=== PATIENT | male | born 1965 | race Caucasian/White ===

== ENCOUNTER 2017-05-27 20:22 | Observation (INO) ==
[2017-05-27] MEDS ORDERED: Aspirin 81 MG TAB.CHEW PO ONE (20:34)
[2017-05-27] MEDS ORDERED: Nitroglycerin 0.4 MG TAB.SUBL SL PRN (20:50)
--- NOTE | 2017-05-27 20:50 | Emergency Department Note ---
Disposition Clinical Impression: Chest pain Qualifiers: Chest pain type: unspecified Qualified Code(s): R07.9 - Chest pain, unspecified Disposition: Admitted As Inpatient Condition: Good Referrals: Yoselyn Bowling CNP [Primary Care Provider] - Forms: ED Satisfaction Letter Chest Pain HPI - General Chief Complaint: ED Chest Pain Stated Complaint: CP Time Seen by Provider: 05/27/17 20:34 Source: patient Mode of arrival: private vehicle Limitations: no limitations Vital Signs Reviewed: Yes Nursing Notes Reviewed: Yes - History of Present Illness HPI Narrative: 52-year-old male history of coronary artery disease with 2 stents placed in 06/10 , hypertension, hyperlipidemia, smoking to the ER with a chief complaint of chest pain. Patient states symptoms began at 8:30 this morning while driving home. Reports it "felt like an elephant sitting on my chest". States that throughout the day pressure improved but he still has a sharp sensation over his left chest. He denies any diaphoresis, dizziness, lightheadedness, nausea or vomiting. States that he has had 3 episodes of chest pain over the last several weeks but none lasted this long. He was not evaluated at that time. States he is on Coumadin for history of DVT. No history of pulmonary embolus. No other complaints. Pt complaint: chest pain Onset (ago): hour(s) Time: 08:30 Duration: constant Onset: during rest Pain Location: left chest Severity: moderate Severity scale (1-10): 8 Quality: heaviness, sharp Pain Radiation: none Improves with: nothing Worsens with: nothing Associated symptoms: Denies: nausea, vomiting, diaphoresis, dyspnea Treatments prior to arrival chest pain: none - Related Data On Oral Contraceptives: No Home Medications Medication Instructions Recorded Confirmed Aspirin [Adult Low Dose Aspirin EC] 81 mg PO DAILY 08/12/15 05/27/17 Clopidogrel [Plavix] 75 mg PO DAILY 08/12/15 05/27/17 Metoprolol [Lopressor] 25 mg PO BID 08/12/15 05/27/17 Simvastatin [Zocor] 40 mg PO DAILY 08/12/15 05/27/17 Furosemide [Lasix] 40 - 80 mg PO DAILY 05/27/17 05/27/17 Allergies Allergy/AdvReac Type Severity Reaction Status Date / Time Cortisone Allergy Swelling Verified 08/21/16 13:21 of Lip/Tongue/Throat methylprednisolone Allergy Swelling Verified 08/21/16 13:21 [From Depo-Medrol] of Lip/Tongue/Throat All systems ED: reviewed and negative except as stated. Constitutional: Denies: fever Cardiovascular: Reports: chest pain Respiratory: Denies: cough, dyspnea Gastrointestinal: Denies: abdominal pain, nausea, vomiting Chest Pain PMH - Past Medical History Medical history: Reports: coronary artery disease, hyperlipidemia, hypertension , myocardial infarction Surgical history: Reports: orthopedic, other Psychiatric history: Reports: no psych history - Social History Smoking Status: Current every day smoker Alcohol use: Reports: occasionally Drug use: Reports: none Physical Exam - General Limitations: no limitations General appearance: alert, in no apparent distress - Head Head exam: atraumatic - Eye Eye exam: Present: normal appearance - ENT ENT exam: normal exam - Neck Neck exam: Present: normal inspection, full ROM - Chest Chest inspection: Present: normal inspection, symmetric chest wall rise - Respiratory Respiratory exam: Present: normal lung sounds bilaterally - Cardiovascular Cardiovascular exam: Present: regular rate, normal rhythm, normal heart sounds - Abdominal Exam Abdominal exam: Present: soft, Non-Tender. Absent: tenderness - Extremities Exam Extremities exam: Present: normal inspection, full ROM - Expanded Upper Extremity Exam Shoulder exam: Present: normal inspection, full ROM Arm exam: Present: normal inspection, full ROM Elbow exam: Present: normal inspection, full ROM Forearm/Wrist exam: Present: normal inspection, full ROM Hand exam: Present: normal inspection, full ROM - Expanded Lower Extremity Exam Hip/Pelvis exam: Present: normal inspection, full ROM Upper leg exam: Present: normal inspection, full ROM Knee exam: Present: normal inspection, full ROM Lower leg exam: Present: normal inspection, full ROM Ankle exam: Present: normal inspection, full ROM Foot/toe exam: Present: normal inspection, full ROM - Skin Skin exam: Present: warm, dry Course Course Narrative: Patient seen and examined. Vital signs reviewed. We will get an EKG, chest x- ray as well as labs including troponin. Patient will be given aspirin and nitroglycerin trial here. - Reevaluation(s) Reevaluation #1: Discussed results of imaging and labs with the patient. Reports his pain is currently 4/10 from an 8. Recommended admission. At first he was hesitant was thinking about repeat 3 hour troponin however the patient is agreeable with being admitted. We will give him a dose of fentanyl for pain and admit. Vital Signs Temperature 97.9 F 05/27/17 20:25 Pulse Rate 78 05/27/17 20:25 Respiratory Rate 20 05/27/17 20:25 Blood Pressure 145/91 05/27/17 20:25 O2 Sat by Pulse Oximetry 96 05/27/17 20:25 Temperature 97.9 F 05/27/17 20:25 Pulse Rate 71 05/27/17 21:46 Respiratory Rate 18 05/27/17 21:46 Blood Pressure 123/74 05/27/17 21:46 O2 Sat by Pulse Oximetry 100 05/27/17 21:46 Oxygen Delivery Oxygen Delivery Room Air Chest Pain - MDM Narrative Medical decision making narrative: 52-year-old male presents to the ER due to chest pain. Started 8:30 this morning at rest. Reports it was pressure first and now more sharp. No associated symptoms. Upon history of coronary artery disease with 2 stents placed. EKG is sinus without ischemic features. Chest x-ray unremarkable. Initial troponin within normal limits. Patient given aspirin and nitroglycerin. His pain somewhat improved. Patient also given a dose of fentanyl. He is admitted to the hospital service for chest pain evaluation. - Lab Data Lab results reviewed: Yes I reviewed the patient's lab results. Result diagrams: 05/27/17 20:45 05/27/17 20:45 Lab Results 05/27/17 05/27/17 05/27/17 Range/Units 20:45 20:45 20:45 WBC 7.0 (4.3-11.1) K/mcL RBC 5.34 (4.19-5.50) M/mcL Hgb 13.5 (12.9-16.9) g/dL Hct 43.6 (37.5-50.1) % MCV 81.6 L (83.0-100.0) fL MCH 25.3 L (28.0-33.3) pg MCHC 31.0 L (31.6-35.5) g/dL RDW 15.0 H (11.5-14.5) % Plt Count 265 (140-400) K/mcL MPV 9.3 L (9.4-12.4) fL Immature Gran % 0.1 (0-4) % Seg Neutrophils % 62.6 % Lymphocytes % 28.2 % Monocytes % 8.1 % Eosinophils % 0.0 % Basophils % 1.0 % Neutrophils # 4.4 (1.6-8.9) K/mcL Lymphocytes # 2.0 (0.6-4.6) K/mcL Monocytes # 0.6 (0.0-1.3) K/mcL Eosinophils # 0.0 (0.0-0.6) K/mcL Basophils # 0.1 (0.0-0.2) K/mcL PT 10.4 (9.4-12.1) Seconds INR 1.0 APTT 27.8 (26.0-36.0) Seconds Sodium (136-145) mEq/L Potassium (3.5-5.1) mEq/L Chloride (98-107) mEq/L Carbon Dioxide (23-29) mEq/L BUN (6-20) mg/dL Creatinine (0.70-1.30) mg/dL Est GFR ( Amer) (> 60) Est GFR (Non-Af Amer) (> 60) BUN/Creatinine Ratio (6-26) Glucose (70-105) mg/dL Calculated Osmolality (280-300) Calcium (8.6-10.3) mg/dL Troponin I (< 0.04) ng/mL B-Natriuretic Peptide 14 (Less than 100) pg/mL 05/27/17 05/27/17 Range/Units 20:45 20:45 WBC (4.3-11.1) K/mcL RBC (4.19-5.50) M/mcL Hgb (12.9-16.9) g/dL Hct (37.5-50.1) % MCV (83.0-100.0) fL MCH (28.0-33.3) pg MCHC (31.6-35.5) g/dL RDW (11.5-14.5) % Plt Count (140-400) K/mcL MPV (9.4-12.4) fL Immature Gran % (0-4) % Seg Neutrophils % % Lymphocytes % % Monocytes % % Eosinophils % % Basophils % % Neutrophils # (1.6-8.9) K/mcL Lymphocytes # (0.6-4.6) K/mcL Monocytes # (0.0-1.3) K/mcL Eosinophils # (0.0-0.6) K/mcL Basophils # (0.0-0.2) K/mcL PT (9.4-12.1) Seconds INR APTT (26.0-36.0) Seconds Sodium 139 (136-145) mEq/L Potassium 3.9 (3.5-5.1) mEq/L Chloride 104 (98-107) mEq/L Carbon Dioxide 27 (23-29) mEq/L BUN 12 (6-20) mg/dL Creatinine 0.71 (0.70-1.30) mg/dL Est GFR ( Amer) > 60 (> 60) Est GFR (Non-Af Amer) > 60 (> 60) BUN/Creatinine Ratio 17 (6-26) Glucose 135 H (70-105) mg/dL Calculated Osmolality 290 (280-300) Calcium 8.8 (8.6-10.3) mg/dL Troponin I < 0.03 (< 0.04) ng/mL B-Natriuretic Peptide (Less than 100) pg/mL - Radiology Data Radiology results reviewed: Yes I reviewed the patient's radiology results. Chest X-Ray 05/27/17 20:34 IMPRESSION: No acute process. D/ / Pavan Gaspar MD / Pavan Gaspar MD Interpreting Provider: Pavan Gaspar MD - EKG Data EKG attestation: Yes I reviewed and interpreted this EKG. EKG results narrative: EKG demonstrates sinus rhythm with a rate of 74 bpm. Left axis deviation. Prolonged NV interval of 208. Other intervals normal. Normal R-wave progression. No gross ST elevations or depressions. No acute ischemic findings. No significant changes from previous EKG dated 07/31/16. Heart Score - Score History: Moderately Suspicious EKG: Normal Age: 45-65 Risk Factors: Equal/Greater than 3 risk factor or history of atherosclerotic disease Troponin: Less than normal limit HEART Score Total: 4 S.B.A.R. - S.B.A.R. Situation: Demographics, MOA Background: Presenting Complaint, Relevant PMH, Meds, & Allergies Assessment: Course and respsone to treatment, Exam Concerns, Patient/Family Expectation, Pertinant Lab Results Recommendation: Barrier(s) to disposition, Recommendation based on pending studies, treatments, or consults Amanda Report Given to: Dr. Tyrell Patel Repor Time: 22:50 Attestation Statement - Attestation Attestation: I, Juan Whalen MD, personally evaluated this patient and discussed their management with the resident physician. I reviewed the resident's note and agree with the documented findings, medical decision making, and plan of care. 52-year-old male presents to the emergency department with a complaint of some localized left upper anterior chest pain which started at 8:30 this morning. He describes the pain as sharp like a knife stabbing in his chest. It was worse with breathing earlier but now feels more like just a constant dull pressure in the area. No radiation of the pain. No shortness of breath or diaphoresis. No nausea or vomiting. No increased cough. No fever. Patient does have a prior history of coronary artery disease and has 2 coronary artery stents. Pain has been constant more than 12 hours today. On examination patient is a well-developed morbidly obese male in no acute distress. He is alert and oriented 3. There is no cyanosis or diaphoresis. There is some tenderness to palpation over the left upper anterior chest wall. Sounds are clear and equal bilaterally. Heart regular rate and rhythm. Abdomen soft and nontender with normal bowel sounds. 1+ pedal edema bilaterally which patient states is chronic for him. Labs reviewed. Troponin negative. Chest x-ray negative. EKG shows a normal sinus rhythm with a rate of 74. No acute ischemic changes with no acute ST elevations or depression. No significant change from previous EKG dated 2016. The hospitalist, Dr. Santillan, was consulted and accepted admission of the patient.
[2017-05-27 20:53] LABS: Basophils # 0.1 K/mcL (0.0-0.2); Hematocrit 43.6 % (37.5-50.1); Hemoglobin 13.5 g/dL (12.9-16.9); Immature Granulocytes % 0.1 % (0-4); Lymphocytes % 28.2 %; Mean Corpuscular Hemoglobin 25.3 pg (28.0-33.3); Mean Corpuscular Volume 81.6 fL (83.0-100.0); Mean Platelet Volume 9.3 fL (9.4-12.4); Monocytes # 0.6 K/mcL (0.0-1.3); Monocytes % 8.1 %; Neutrophils # 4.4 K/mcL (1.6-8.9); Platelet Count 265 K/mcL (140-400); Red Blood Count 5.34 M/mcL (4.19-5.50); Segmented Neutrophils % 62.6 %
[2017-05-27 20:57] LABS: Prothrombin Time 10.4 Seconds (9.4-12.1)
[2017-05-27 20:59] LABS: Activated Partial Thrombo Time 27.8 Seconds (26.0-36.0)
[2017-05-27 21:45] LABS: BUN/Creatinine Ratio 17 (6-26); Blood Urea Nitrogen 12 mg/dL (6-20); Calcium 8.8 mg/dL (8.6-10.3); Carbon Dioxide 27 mEq/L (23-29); Chloride 104 mEq/L (98-107); Glucose 135 mg/dL (70-105); Osmolality,Calculated 290 (280-300); Potassium 3.9 mEq/L (3.5-5.1); Sodium 139 mEq/L (136-145); eGFR For African Americans > 60 (> 60); eGFR For Non-African Americans > 60 (> 60)
[2017-05-27] MEDS ORDERED: *HR* FentaNYL (PF) 100 MCG/2 ML VIAL IVP ONE (22:21)
[2017-05-28] MEDS ORDERED: Naloxone 0.4 MG/ML INJ IVP PRN (00:53)
[2017-05-28 01:18] LABS: Basophils # 0.1 K/mcL (0.0-0.2); Hematocrit 43.7 % (37.5-50.1); Hemoglobin 13.6 g/dL (12.9-16.9); Immature Granulocytes % 0.3 % (0-4); Lymphocytes # 2.3 K/mcL (0.6-4.6); Lymphocytes % 32.5 %; Mean Corpuscular HGB Conc 31.1 g/dL (31.6-35.5); Mean Corpuscular Hemoglobin 25.6 pg (28.0-33.3); Mean Corpuscular Volume 82.3 fL (83.0-100.0); Mean Platelet Volume 9.2 fL (9.4-12.4); Monocytes # 0.6 K/mcL (0.0-1.3); Monocytes % 9.1 %; Platelet Count 264 K/mcL (140-400); Red Blood Count 5.31 M/mcL (4.19-5.50); Red Cell Distribution Width 15.1 % (11.5-14.5); Segmented Neutrophils % 57.1 %
[2017-05-28 01:41] LABS: BUN/Creatinine Ratio 16 (6-26); Blood Urea Nitrogen 12 mg/dL (6-20); Calcium 8.9 mg/dL (8.6-10.3); Carbon Dioxide 27 mEq/L (23-29); Chloride 104 mEq/L (98-107); Chol/HDL Ratio 5.6 (0-4.9); Cholesterol 157 mg/dL (< 200); Glucose 126 mg/dL (70-105); HDL Cholesterol 28 mg/dL (40-59); LDL Cholesterol,Calculated 63 mg/dL (0-99); Magnesium 1.9 mg/dL (1.6-2.6); Osmolality,Calculated 285 (280-300); Sodium 137 mEq/L (136-145); Triglycerides 331 mg/dL (< 150); eGFR For African Americans > 60 (> 60); eGFR For Non-African Americans > 60 (> 60)
--- NOTE | 2017-05-28 03:00 | Internal Med History&Physical ---
Date of Encounter: 05/28/17 Time of Encounter: 00:30 Assessment and Plan (1) CAD (coronary artery disease) Current visit: Yes Status: Acute Hx of CAD s/p stent, cont asa, plavix, BB, and statin. Qualifiers: Coronary Disease-Associated Artery/Lesion type: [place] artery [place] vs. transplanted heart: [place] heart Associated angina: with unstable angina Qualified Code(s): I25.110 - Atherosclerotic heart disease of [place] coronary artery with unstable angina pectoris (2) HTN (hypertension) Current visit: Yes Status: Acute Cont home meds. Qualifiers: Hypertension type: essential hypertension Qualified Code(s): I10 - Essential (primary) hypertension (3) DVT prophylaxis Current visit: Yes Status: Acute Heparin sc (4) Morbid obesity Current visit: Yes Status: Acute Need lifestyle modification (5) Tobacco abuse Current visit: Yes Status: Acute Smoking cessation education, pt said he doesn't need nicotine patch (6) Chest pain Current visit: Yes Status: Acute Pt has intermittent chest pain. Hx of CAD s/p stent, need to r/o ACS - Continue cardiac monitoring - Track 3 sets of troponin - Echo - Stress test in am if troponin negative and pt is chest pain free Qualifiers: Chest pain type: precordial pain Qualified Code(s): R07.2 - Precordial pain (7) Bilateral lower extremity edema Current visit: No Status: Acute Etiology is undetermined. Pt has leg vein varicosis. Will cont home dose of lasix, check Echo to r/o CHF. Internal Medicine - H&P: HPI Chief complaint: Chest pain Admitted From: Home Plans for Post Hospital Care: Home History of present illness: Mr. Stone is a 52 year old male with Hx of HTN, CAD s/p stent in 2014, HLD, obesity, tobacco abuse, present to ER for chest pain. Pt said he is chest pain free after stent in 2014 until about one month ago. He has on and off chest pain in last week, usually last 1-2 hour and resolve by itself. Today at around 8:30am pt suddenly has chest pain again, located on left chest, sharp and pressure like, 10/10, no radiation, with mild SOB. Pt denies nausea or diaphoresis. He denies fever, he has cough but it is chronic. The chest pain is persist and last longer than usual, pt came to ER for further evaluation. He was given ASA and SL NTG in ER, chest pain resolved. When I saw pt he is pain free. Past Med Surg Social Fam HX - Past Medical History Medical history: coronary artery disease, hyperlipidemia, hypertension, myocardial infarction Psychiatric history: no psych history - Past Surgical History Surgical History: orthopedic, other - Social History Smoking Status: Current every day smoker Smokeless Tobacco Status: No Alcohol use: occasionally Drug use: none - Family History Mother History Unknown: Yes Internal Medicine - H&P: Meds Aspirin [Adult Low Dose Aspirin EC] 81 mg PO DAILY 08/12/15 [History] Clopidogrel [Plavix] 75 mg PO DAILY 08/12/15 [History] Metoprolol [Lopressor] 25 mg PO BID 08/12/15 [History] Simvastatin [Zocor] 40 mg PO DAILY 08/12/15 [History] Furosemide [Lasix] 40 - 80 mg PO DAILY 05/27/17 [History] 3 Allergy/AdvReac Type Severity Reaction Status Date / Time Cortisone Allergy Swelling Verified 08/21/16 13:21 of Lip/Tongue/Throat methylprednisolone Allergy Swelling Verified 08/21/16 13:21 [From Depo-Medrol] of Lip/Tongue/Throat All Systems PM: A 10-system review of systems was performed and is negative for pertinent findings except as documented above in the HPI. - Constitutional Vitals: Temp Pulse Resp BP Pulse Ox 97.9 F 73 18 143/88 98 05/27/17 23:39 05/27/17 23:39 05/27/17 23:39 05/27/17 23:39 05/27/17 23:39 General appearance: Present: A&O X 3, no acute distress, answers questions appropriately - Head Head exam: Present: atraumatic, normocephalic - Eye Eye exam: Present: PERRL, conjuntiva pink, sclera anicteric Pupils: Present: PERRL - Neck Neck exam general surgery: Present: supple, trachea midline. Absent: lymphadenopathy - Respiratory Respiratory exam: Present: CTAB. Absent: accessory muscle use, rales, rhonchi, wheezes - Cardiovascular Cardiovascular exam: Present: RRR, +S1, +S2. Absent: diastolic murmur, gallop, rubs, systolic murmur - GI/Abdominal GI/Abdominal exam: Present: normal bowel sounds, soft, no peritoneal signs. Absent: distended, tenderness - Extremities Exam Extremities exam: Present: pedal edema (mild pedal edema b/l), warm, radial pulses palpable and symmetrical. Absent: calf tenderness, cyanotic - Neurological Exam Neurological exam: Present: CN II-XII intact, oriented X3, no focal deficits. Absent: pronater drift, facial droop, speech deficit - Skin Skin exam: Present: dry, intact Internal Med - H&P Results - Labs CBC & Chem 7: 05/28/17 01:11 05/28/17 01:11 Labs: Short CBC 05/28/17 Range/Units 01:11 WBC 7.0 (4.3-11.1) K/mcL Hgb 13.6 (12.9-16.9) g/dL Hct 43.7 (37.5-50.1) % Plt Count 264 (140-400) K/mcL Neutrophils # 4.0 (1.6-8.9) K/mcL BMP 05/28/17 01:11 Sodium 137 Potassium 4.0 Chloride 104 Carbon Dioxide 27 BUN 12 Creatinine 0.76 Glucose 126 H Calcium 8.9 Cardiac Enzymes 05/28/17 Range/Units 01:11 Troponin I < 0.03 (< 0.04) ng/mL - EKG Data -: EKG Interpreted by Myself EKG shows normal: sinus rhythm Rate: normal - EKG Data Prior EKG available for review: yes When compared to previous EKG: there is no significant change Interpretation IM: normal EKG
[2017-05-28] MEDS ORDERED: Regadenoson 0.4 MG/5 ML SYRINGE IVP ONE (06:02)
--- NOTE | 2017-05-28 07:45 | Internal Med Progress Note ---
Date of Encounter: 05/28/17 Time of Encounter: 07:35 - Assessment and plan (1) CAD (coronary artery disease) Current Visit: Yes Status: Acute Assessment and plan: Prior history of coronary artery disease with stents. Continue aspirin, Plavix , beta jina, and statin. Continue telemetry Qualifiers: Coronary Disease-Associated Artery/Lesion type: [place] artery [place] vs. transplanted heart: [place] heart Associated angina: with unstable angina Qualified Code(s): I25.110 - Atherosclerotic heart disease of [place] coronary artery with unstable angina pectoris (2) Chest pain Current Visit: Yes Status: Acute Assessment and plan: Patient presented to emergency department with constant chest pain for approximately 12 hours yesterday. Onset while he was driving home from work yesterday morning. He reports chest heaviness with intermittent sharp stabbing pains. There was no radiation, no nausea vomiting diaphoresis or shortness of breath. Patient reports that pain and pressure were relieved with activity. Pain is not reproducible. He reports that the pain began to subside when he was driving to the emergency department last night. Chest x-ray is negative. EKG was normal sinus rhythm with no significant change from prior. Troponins were negative. Continue telemetry Continue aspirin, statin, beta jina, Plavix. Echocardiogram pending Stress test ordered and pending, patient will probably be a 2 day stress test. Qualifiers: Chest pain type: precordial pain Qualified Code(s): R07.2 - Precordial pain (3) HTN (hypertension) Current Visit: Yes Status: Chronic Assessment and plan: Chronic. Continue home medications, well controlled. Qualifiers: Hypertension type: essential hypertension Qualified Code(s): I10 - Essential (primary) hypertension (4) Morbid obesity Current Visit: Yes Status: Chronic Assessment and plan: Chronic. Encourage lifestyle modifications. (5) Tobacco abuse Current Visit: Yes Status: Chronic Assessment and plan: Smoking cessation discussed, pt declines nicotine replacement therapy. (6) Bilateral lower extremity edema Current Visit: No Status: Chronic Assessment and plan: Pt reports chronic dependent edema from standing at work for 10 hours, as well as from obesity and uncontrolled diet. Continue home dose of lasix. Echo pending. (7) DVT prophylaxis Current Visit: Yes Status: Chronic Assessment and plan: Heparin SQ, pt is ambulatory - Time Spent With Patient less than 15 minutes - Subjective Interval history: Patient was seen and assessed at bedside at 7:35 AM. He is aware of his 2 day stress test. He has not had any testing performed at this time. She denies chest pain currently. He reports chest pain lasting approximately 12 hours was almost constant, was only relieved when he came to the emergency department. Currently denies any headache, nausea, vomiting, diaphoresis, shortness of breath. He has no abdominal pain, dizziness. He reports that he stands on his feet for 10 hours at a time and constantly has peripheral edema and it is unchanged at this time. - Constitutional Vitals: Temp Pulse Resp BP Pulse Ox 97.7 F 84 18 115/72 96 05/28/17 03:34 05/28/17 03:34 05/28/17 03:34 05/28/17 03:34 05/28/17 03:34 General appearance: Present: cooperative, A&O X 3, morbidly obese, pleasant, no acute distress, answers questions appropriately - Head Head exam: Present: atraumatic, normal inspection, normocephalic - Eye Eye exam: Present: normal appearance, conjuntiva pink, sclera anicteric - Neck Neck exam general surgery: Present: normal inspection, supple, trachea midline. Absent: lymphadenopathy, tenderness - Respiratory Respiratory exam: Present: chest wall tenderness, decreased breath sounds, CTAB. Absent: accessory muscle use, rales, respiratory distress, rhonchi, wheezes - Cardiovascular Cardiovascular exam: Present: RRR, +S1, +S2. Absent: diastolic murmur, gallop, rubs, systolic murmur - GI/Abdominal GI/Abdominal exam: Present: normal bowel sounds, soft, no peritoneal signs. Absent: distended, hepatomegaly, tenderness - Extremities Exam Extremities exam: Present: normal capillary refill, normal inspection, pedal edema, warm, radial pulses palpable and symmetrical. Absent: calf tenderness, cyanotic, tenderness - Neurological Exam Neurological exam: Present: alert, CN II-XII intact, oriented X3, no focal deficits. Absent: pronater drift, facial droop, speech deficit - Skin Skin exam: Present: dry, intact, normal color, warm. Absent: rash Internal Medicine: Result - Labs CBC & Chem 7: 05/28/17 01:11 05/28/17 01:11 Labs: Short CBC 05/28/17 Range/Units 01:11 WBC 7.0 (4.3-11.1) K/mcL Hgb 13.6 (12.9-16.9) g/dL Hct 43.7 (37.5-50.1) % Plt Count 264 (140-400) K/mcL Neutrophils # 4.0 (1.6-8.9) K/mcL BMP 05/28/17 01:11 Sodium 137 Potassium 4.0 Chloride 104 Carbon Dioxide 27 BUN 12 Creatinine 0.76 Glucose 126 H Calcium 8.9 Cardiac Enzymes 05/28/17 Range/Units 01:11 Troponin I < 0.03 (< 0.04) ng/mL - ABG Interpretation ABG results: PT/INR, D-dimer PT 10.4 Seconds (9.4-12.1) 05/27/17 20:45 Consult Discharge Plan - Plan Referrals: Yoselyn Bowling, PERSONNEL SCHEDULER [Primary Care Provider] -
[2017-05-28] MEDS ORDERED: Perflutren Lipid Microsphere 1.3 ML in 0.9 % Sodium Chloride 8.7 ML IVP ONE (09:23)
[2017-05-28] MEDS: *HR* Heparin 5,000 UNIT/ML VIAL SQ SCH ×2 (10:34→17:31)
[2017-05-28] MEDS: Furosemide 40 MG TABLET PO SCH (11:16)
[2017-05-28] MEDS: Aspirin Enteric Coated 81 MG Tablet PO SCH (11:16)
--- NOTE | 2017-05-28 17:59 | Electrocardiograph Report ---
[place] [id number] Test Date: 2017-05-27 Pat Name: Bennie Stone Department: 102 Room: 3B21 Gender: M [employer] C[employer] Helper: Zaki : 1965 Requested By: Hunter Howard Order Number: [id number] Reading MD: Madi Jones Measurements Intervals [place] Rate: 74 P: 34 [place]: 208 QRS: -40 QRSD: 110 T: 24 QT: 410 QTc: 438 Interpretive Statements SINUS RHYTHM PATTERN CONSISTENT WITH PULMONARY DISEASE INFERIOR MYOCARDIAL INFARCTION, PROBABLY OLD Electronically Signed On 05-28-2017 17:57:45 EST by Madi Jones
[2017-05-29] MEDS: *HR* Heparin 5,000 UNIT/ML VIAL SQ SCH (06:03)
[2017-05-29] MEDS: Furosemide 40 MG TABLET PO SCH (07:59)
[2017-05-29] MEDS: Aspirin Enteric Coated 81 MG Tablet PO SCH (07:59)
--- NOTE | 2017-05-29 12:05 | Discharge Summary ---
Date of Encounter: 05/29/17 Time of Encounter: 09:50 - Discharge Diagnosis (1) CAD (coronary artery disease) Priority: Primary Status: Acute Comments: Prior history with stents x 2. Continue asa, plavix, BB, and statin. Denies chest pain. Qualifiers: Coronary Disease-Associated Artery/Lesion type: [place] artery [place] vs. transplanted heart: [place] heart Associated angina: with unstable angina Qualified Code(s): I25.110 - Atherosclerotic heart disease of [place] coronary artery with unstable angina pectoris (2) Chest pain Priority: Primary Status: Acute Comments: Pt denies chest pain or pressure today. Completed stress test today and revealed a small sized, primarily fixed basal-mid inferior wall perfusion defect with mild worsening during stress, may represent artifact, however, ischemia cannot be excluded. Echocardiogram LVEF 55-60%, mild LVDD, no significant valvular dysfunction. Troponins negative, chest xray negative for acute process. Patient has been evaluated by cardiology. He has opted for medical management with close outpatient follow-up and discharge, patient will have [facility] later this week. Imdur 30 mg by mouth daily will be added to her medication regimen. Continue aspirin, statin, Plavix, beta jina. Qualifiers: Chest pain type: precordial pain Qualified Code(s): R07.2 - Precordial pain (3) HTN (hypertension) Priority: Secondary Status: Chronic Comments: Chronic. Continue home medications. Qualifiers: Hypertension type: essential hypertension Qualified Code(s): I10 - Essential (primary) hypertension (4) Morbid obesity Priority: Secondary Status: Chronic Comments: Chronic. Lifestyle modifications (5) Tobacco abuse Priority: Secondary Status: Chronic Comments: Tobacco cessation discussed, pt has declined nicotine replacement therapy here or for discharge. (6) Bilateral lower extremity edema Priority: Secondary Status: Chronic Comments: Chronic bilateral dependent edema. Pt states that he stands for 10 hours daily at work, he is also morbidly obese with and uncontrolled diet. Continue home dose of lasix. Echo with preserved EF, mild LVDD, and no significant valvular dysfunction. No change from baseline. (7) DVT prophylaxis Priority: Secondary Status: Chronic Comments: Heparin SQ, pt is up ambulating in the halls. - Discharge Medications Prescriptions: Isosorbide MONOnitrate (24 HR) [Imdur] 30 mg PO DAILY #30 tab.er.24h Home Medications: Aspirin [Adult Low Dose Aspirin EC] 81 mg PO DAILY 08/12/15 [History] Clopidogrel [Plavix] 75 mg PO DAILY 08/12/15 [History] Metoprolol [Lopressor] 25 mg PO BID 08/12/15 [History] Simvastatin [Zocor] 40 mg PO DAILY 08/12/15 [History] Furosemide [Lasix] 40 - 80 mg PO DAILY 05/27/17 [History] Isosorbide MONOnitrate (24 HR) [Imdur] 30 mg PO DAILY #30 tab.er.24h 05/29/17 [ Rx] Allergies/Adverse Reactions: 3 Allergy/AdvReac Type Severity Reaction Status Date / Time Cortisone Allergy Swelling Verified 08/21/16 13:21 of Lip/Tongue/Throat methylprednisolone Allergy Swelling Verified 08/21/16 13:21 [From Depo-Medrol] of Lip/Tongue/Throat Procedures/tests Complete & Pending: Procedures Performed prior 72 hours Category Date Time Status NM ana perf SPECT multi [NM] Routine Exams 05/28/17 00:57 Taken EV echocardiogram w enhance Routine Y 05/28/17 00:56 Completed SP pharm nuclear stress Routine Y 05/28/17 00:57 Completed Date of admission: 05/27/17 22:57 Primary care physician: Yoselyn Bowling CNP Consults: 05/29/17 09:49 Consult to Cardiology [CONS] Routine Comment: Consulting Provider: Cardiology Desirae Reason for Consult: abnormal stress Time Notified: 09:50 Call Completed: Yes Discharging clinician: Lee Ann Hebret Anticipated date of discharge: 05/29/17 - Patient Status Disposition: Home, Self-Care Condition: Good Functional capacity at discharge: independent ambulation Overall status at discharge: patient is back to baseline - Discharge Instructions Follow Up With: Yoselyn Bowling CNP [Primary Care Provider] - 06/02/17 10:00 am Additional Instructions: Please follow up with your PCP in the next 7-10 days. Follow up with cardiology as scheduled. Return to the ER as needed for any other problems or concerns. Take your medications exactly as directed. Low calorie, low fat diet, include daily exercise and weight loss. Stop smoking Return to your normal activities as tolerated. - Diet and Activity Activity: increase activity as tolerated Diet: low fat, low cholesterol, low salt diet Hospital course: Mr. Stone is a 52 year old male with PMH of [place], HTN, morbid obesity, tobacco abuse, CAD with stent x 2. Pt reports chest pain for approximately 12 hours prior to admission. None since arrival. Pt had positive stress test, echo with preserved EF, mild LVDD, and no valvular dysfunction. Trops and chest xray negative. Pt does not take his BB as prescribed, only takes once daily in the morning. Pt will continue home medications as well as add Imdur 30 mg daily. Patient will have LHC later in the week and is encouraged to return to the ER if symptoms return or worsen. He is stable for discharge. - Time Spent with Patient Total time spent providing and/or coordinating discharge services: Less than 30 minutes - Constitutional Vitals: Temp Pulse Resp BP Pulse Ox 97.6 F 71 16 136/89 94 05/29/17 07:15 05/29/17 07:15 05/29/17 07:15 05/29/17 07:15 05/29/17 07:15 General appearance: Present: cooperative, A&O X 3, morbidly obese, pleasant, no acute distress, answers questions appropriately - Head Head exam: Present: atraumatic, normal inspection, normocephalic - Eye Eye exam: Present: normal appearance, conjuntiva pink, sclera anicteric - Neck Neck exam general surgery: Present: supple, trachea midline. Absent: lymphadenopathy, tenderness - Respiratory Respiratory exam: Present: CTAB. Absent: accessory muscle use, rales, rhonchi, wheezes - Cardiovascular Cardiovascular exam: Present: RRR, +S1, +S2. Absent: bradycardia, diastolic murmur, gallop, rubs, systolic murmur - GI/Abdominal GI/Abdominal exam: Present: normal bowel sounds, soft, no peritoneal signs. Absent: distended, hepatomegaly, tenderness - Extremities Exam Extremities exam: Present: normal capillary refill, pedal edema, warm, radial pulses palpable and symmetrical. Absent: calf tenderness, cyanotic, tenderness - Neurological Exam Neurological exam: Present: alert, oriented X3, no focal deficits, strengths equal and symetr throughout. Absent: facial droop, speech deficit - Skin Skin exam: Present: dry, intact, normal color, warm. Absent: rash
[2017-05-29 12:20] VITALS: BP 117/80
[2017-05-29] MEDS ORDERED: Isosorbide MONOnitrate (24 HR) 30 MG TAB.ER.24H PO SCH (14:15)
--- NOTE | 2017-05-29 14:33 | Cardiology Consult Note ---
Date of Encounter: 05/29/17 Time of Encounter: 14:29 Assessment and Plan (1) Abnormal stress test Current Visit: Yes Status: Acute Stress test was obtained--2 day that was challenging to interpret secondary to body habitus. There was a small sized, primarily fixed basal-mid inferior wall perfusion defect with mild worsening during stress. While findings may represent artifact, ischemia could not be excluded. Low risk/equivocal stress test findings. Chest pain free since admission after nitro was given with further details per HPI. Hx of CAD with PCI to RCA 2013. Troponins negative, EKG without ischemic changes. Echo EF preserved, normal wall motion. Discussed findings with pt and options of medical management with close outpt follow-up/re-evaluation vs. medical management with plan for outpt LHC vs staying as inpt for LHC wednesday. R/B/A of all options discussed. Pt prefers to be discharged home on Imdur, in addition to his home meds of ASA, Statin, Plavix , BB and plan for outpt LHC later this week. Will coordinate through our office. Instructed pt to avoid strenuous activity and if recurrent or worsening chest pain not relieved by nitro, return to ED. Will discuss and review with Dr. Madi Jones to make sure he agrees with above plan. (2) Chest pain Current Visit: Yes Status: Acute Plan as above. Chest pain free since receiving nitro in ED. Qualifiers: Chest pain type: precordial pain Qualified Code(s): R07.2 - Precordial pain (3) CAD (coronary artery disease) Current Visit: Yes Status: Acute LHC 06/07/2013: Left main normal. LAD proximal 30-40% stenosis in mid 20% stenosis. Mid LAD bridging noted. Circumflex normal. OM1 normal. RCA proximal 60 % stenosis (KYLIE placed) and distal 100% stenosis (KYLIE placed). Low risk/equivocal stress test findings as above. ASA, Plavix, Statin, BB, Imdur. Qualifiers: Coronary Disease-Associated Artery/Lesion type: [place] artery [place] vs. transplanted heart: [place] heart Associated angina: with unstable angina Qualified Code(s): I25.110 - Atherosclerotic heart disease of [place] coronary artery with unstable angina pectoris (4) HTN (hypertension) Current Visit: Yes Status: Chronic BP well controlled on current meds. Qualifiers: Hypertension type: essential hypertension Qualified Code(s): I10 - Essential (primary) hypertension (5) Tobacco abuse Current Visit: Yes Status: Chronic Smoking cessation counseling given. Discussion w patient/family: The assessment and plan as outlined above was discussed with the patient and/or family members who expressed understanding and agreement. All questions were answered. Thank you for involving us in the care of your patient. Please call with any questions. I will discuss all the above with Dr. Madi Jones and make changes as necessary. History of Present Illness Consult date: 05/29/17 Requesting physician: Lee Ann Hebert Consult reason: abnormal stress test Chief complaint: chest pain History of present illness: Mr. Stone is a 52 year old male with PMH of HTN, CAD, prior NSTEMI in 2013 s/p 2 [place] to RCA, tobacco abuse. He has not been seen in cardiology clinic since 2015. Pt presented to ED with chest pain described as left sided, sharp, without radiation that has been intermittent over the past two months. He reports it occurs at both rest and exertion, but mostly notices it on exertion while working. Usually the pain quickly resolves spontaneously, but persisted prompting admission and was relieved with nitro in ED without recurrence. Troponin negative x 3. Stress test was obtained--2 day that was challenging to interpret secondary to body habitus. There was a small sized, primarily fixed basal-mid inferior wall perfusion defect with mild worsening during stress. While findings may represent artifact, ischemia could not be excluded and cardiology was consulted for further recommendations. Echo LVEF 55-60%. Normal LV chamber size, wall thickness and function. Mild left ventricular diastolic dysfunction. No obvious significant valvular dysfunction. Prior testing: Left heart catheterization 06/07/2013: Left main normal. LAD proximal 30-40% stenosis in mid 20% stenosis. Mid LAD bridging noted. Circumflex normal. OM1 normal. RCA proximal 60% stenosis (KYLIE placed) and distal 100% stenosis (KYLIE placed). Echocardiogram 11/30/2013: EF 60%. Normal LV size and function. Normal diastolic function. No significant valvular dysfunction. No pulmonary hypertension. Past Med Surg Social Fam HX - Past Medical History Medical history: coronary artery disease, hyperlipidemia, hypertension, myocardial infarction Psychiatric history: no psych history - Past Surgical History Surgical History: angioplasty/stent, orthopedic, other - Social History Smoking Status: Current every day smoker Smokeless Tobacco Status: No Alcohol use: occasionally Drug use: none - Family History Mother History Unknown: Yes Medications and Allergies Aspirin [Adult Low Dose Aspirin EC] 81 mg PO DAILY 08/12/15 [History] Clopidogrel [Plavix] 75 mg PO DAILY 08/12/15 [History] Metoprolol [Lopressor] 25 mg PO BID 08/12/15 [History] Simvastatin [Zocor] 40 mg PO DAILY 08/12/15 [History] Furosemide [Lasix] 40 - 80 mg PO DAILY 05/27/17 [History] 3 Allergy/AdvReac Type Severity Reaction Status Date / Time Cortisone Allergy Swelling Verified 08/21/16 13:21 of Lip/Tongue/Throat methylprednisolone Allergy Swelling Verified 08/21/16 13:21 [From Depo-Medrol] of Lip/Tongue/Throat All Systems Review: A 10-system review of systems was performed and is negative for pertinent findings except as documented above in the HPI. - Cardiovascular Cardiovascular: as per HPI, chest pain at rest, chest pain with exertion Physical Examination Vital Signs, Last 4 Hours Temp Pulse Resp BP Pulse Ox 05/29/17 12:19 97.5 F L 69 16 117/80 96 Vital Signs Temp Pulse Resp BP Pulse Ox 05/29/17 12:19 97.5 F L 69 16 117/80 96 05/29/17 07:15 97.6 F 71 16 136/89 94 05/29/17 02:58 97.6 F 76 16 118/70 92 05/28/17 23:12 97.9 F 82 16 122/72 96 05/28/17 19:00 97.9 F 92 16 142/96 96 05/28/17 15:45 98.8 F 83 17 123/75 96 Intake and Output 05/28/17 05/29/17 05/29/17 23:59 07:59 15:59 Other: Weight 163 kg Patient Weight 05/29/17 23:59 Weight 163 kg General: Conversant, No Apparent Distress HEENT: Atraumatic, Normocephaly, Mucus Membranes Moist Neck: No JVD, Normal carotid pulses Cardiac: Reg Rate and Rhythm, Normal S1 and S2, No Murmur Lungs: Normal Breath Sounds, No Wheeze, Rales, Rhonchi Neuro: Alert and responsive, No focal deficits noted Abdomen: Soft, Non-Tender Skin: No rashes noted on visualized skin Musculoskeletal: No Chest Wall Tenderness Extremities: No Clubbing, No Cyanosis, No Edema, Normal Pulses Results 05/28/17 01:11 05/28/17 01:11 Active Medications Aspirin (Aspirin Ec) 81 mg PO DAILY [facility] Stop: 11/27/17 09:01 Last Admin: 05/29/17 07:59 Dose: Not Given Clopidogrel Bisulfate (Plavix) 75 mg PO DAILY [facility] Stop: 11/27/17 09:01 Last Admin: 05/29/17 08:00 Dose: Not Given Furosemide (Lasix) 40 mg PO DAILY [facility] Stop: 11/27/17 09:01 Last Admin: 05/29/17 07:59 Dose: Not Given Heparin Sodium (Porcine) (Heparin) 5,000 unit SQ Q12HCO [facility] Stop: 11/27/17 06:01 Last Admin: 05/29/17 06:03 Dose: Not Given Isosorbide Mononitrate (Imdur) 30 mg PO DAILY [facility] Stop: 11/28/17 14:16 Metoprolol Tartrate (Lopressor) 25 mg PO BID [facility] Stop: 11/27/17 09:01 Last Admin: 05/29/17 07:59 Dose: Not Given Naloxone HCl (Narcan) 0.4 mg IVP Q2MIN PRN PRN Reason: SEE COMMENTS Stop: 11/27/17 00:54 Nitroglycerin (Nitroglycerin) 0.4 mg SL Q5MIN PRN PRN Reason: Chest Pain Stop: 11/26/17 20:51 Last Admin: 05/27/17 21:31 Dose: 0.4 mg Simvastatin (Zocor) 40 mg PO DAILY [facility] PRN Reason: Protocol Stop: 11/27/17 09:01 Last Admin: 05/29/17 08:00 Dose: Not Given - Imaging and Cardiology Stress Test: report reviewed Echo: report reviewed Cardiac cath: report reviewed - EKG Interpretation EKG results cardiology: personally reviewed, other (12 hr tele AVG HR 71, SR, no significant pauses or arrhythmias) Consult Discharge Plan - Plan Additional Instructions: Please follow up with your PCP in the next 7-10 days. Follow up with cardiology as scheduled. Return to the ER as needed for any other problems or concerns. Take your medications exactly as directed. Low calorie, low fat diet, include daily exercise and weight loss. Stop smoking Return to your normal activities as tolerated. Referrals: Yoselyn Bowling, VINCE [Primary Care Provider] - 06/02/17 10:00 am
== END 2017-05-29 16:00 | disposition home or self-care (01) ==
LOC: 3BNU 20:22 → EMEROO 20:22 → 3BNU 23:15
PROVIDERS: ADMIT Internal Medicine; ATTEND Registered Nurse